=== PATIENT | male | born 1965 | race African-American/Black ===

== ENCOUNTER 2016-07-29 21:31 | Emergency (ER) | payer OTHER ==
[~2016-07-29] VITALS: Ht 167.6 cm; Wt 77.5 kg
[2016-07-30 00:17] VITALS: BP 142/95
[2016-07-30] MEDS ORDERED: SKELAXIN800 MG PO (00:19)
== END 2016-07-30 00:32 | disposition home or self-care (01) ==
LOC: EME 21:31
DX: S16.1XXA Strain of muscle, fascia and tendon at neck level, initial encounter (principal); V49.40XA Driver injured in collision with unspecified motor vehicles in traffic accident, initial encounter
CPT/HCPCS: 99281; 99283